=== PATIENT | male | born 1940 | race Caucasian/White ===

== ENCOUNTER 2017-02-11 16:28 | Emergency (ER) ==
[2017-02-11 16:41] VITALS: BP 159/85
[2017-02-11] MEDS ORDERED: XYLOCAINE-MPF 1% 10 ML ONE (16:46)
--- NOTE | 2017-02-11 17:05 | PROVIDER DOCUMENTATION ---
HPI-Rash/Wound/ReCheck - General Source: patient - History of Present Illness-Dermatology Location: reports: other (left thumb) Quality: reports: painful Severity: reports: moderate Onset/Duration: reports: 1/2 hour ago Timing: reports: still present Context/Associated Symptoms: reports: laceration Identifiable cause?: Yes Locality of Occurance: Home Similar Symptoms Previously?: No Recently seen or treated by another doctor?: No <Teodora Fry - Last Filed: 02/11/17 17:01> <Belgica Chen - Last Filed: 02/11/17 17:32> - General Chief Complaint: Laceration[s] Stated Complaint: LACERATION{S} Time Seen by Provider: 02/11/17 16:46 Allergies/Adverse Reactions: Allergies Allergy/AdvReac Type Severity Reaction Status Date / Time No Known Allergies Allergy Verified 02/11/17 16:36 Home Medications: Home Medication List Medication Instructions Recorded Confirmed Last Taken Type Acetaminophen/Diphenhydramine 1 each PO QHS PRN 07/24/12 02/11/17 04/13/14 20: 00 History [Tylenol Pm] 1 Aspirin 81 mg PO QHS 07/24/12 02/11/17 04/13/14 20:00 History 81 Carvedilol 12.5 mg PO BID 07/24/12 02/11/17 04/14/14 09:00 History 12.5 Erythromycin Stearate [Erythrocin] 250 mg PO TID 07/24/12 02/11/17 04/14/14 18: 00 History 250 Insulin Glargine,Hum.rec.anlog 45 units SQ QHS 07/24/12 02/11/17 04/13/14 20:00 History [Lantus] 45 Isosorbide Mononitrate 60 mg PO QHS 07/24/12 02/11/17 04/14/14 09:00 History 60 Losartan/Hydrochlorothiazide 100 mg PO DAILY 07/24/12 02/11/17 04/14/14 09:00 History [Losartan-Hctz 100-12.5 mg Tab] 100 Mineral Oil [Mineral Oil Heavy] 15 ml PO QHS PRN 07/24/12 02/11/17 07/22/12 22: 00 History Sucralfate [Carafate] 1 gm PO 4XDAY 07/24/12 02/11/17 04/14/14 18:00 History 1 Hydrochlorothiazide 12.5 mg PO DAILY 04/14/14 02/11/17 04/14/14 09:00 History 12.5 Nitroglycerin Sl [Nitrostat] 0.4 mg SL PRN PRN 04/14/14 02/11/17 04/14/14 21:00 History 3 tabs total SIMVAstatin [Zocor] 40 mg PO QHS 04/14/14 02/11/17 04/13/14 20:00 History 40 Cephalexin [Keflex] 500 mg PO BID #20 capsule 02/11/17 Unknown Rx Hydrocodone/Acetaminophen [Lortab 1 each PO TID #10 tablet 02/11/17 Unknown Rx 5-325 mg Tablet] - History of Present Illness-Dermatology Nature of Presenting Problem: Pt is a 76 yom that presents to er with cc of finger laceration patient care. pt reports he had just put a new blade on his chainsaw and was cutting a tree about 30 seconds when it kicked back on him lacerating left thumb. Pt had finger wrapped and bleeding controlled on arrival. Last unknown tetanus. (Teodora Fry) Review of Systems - Adult - REVIEW OF SYSTEMS - ADULT Constitutional: denies: chills, fever, fatique Eyes: reports: no symptoms reported Ears, Nose, Mouth & Throat: reports: no symptoms reported Cardiovascular: denies: chest pain, irregular heart rate, orthopnea, syncope Respiratory: reports: no symptoms reported Gastrointestinal: reports: no symptoms reported Genitourinary: reports: no symptoms reported Musculoskeletal: reports: see HPI. denies: joint pain, joint swelling, muscle aches Integumentary: reports: see HPI. 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 - IMMUNIZATION STATUS Childhood Immunizations: See Nurse Assessment Flu Vaccine: See Nurse Assessment - FAMILY HISTORY Family History: reviewed, not pertinent - SOCIAL HISTORY Smoking: denies Substance Use: none/never <Teodora Fry - Last Filed: 02/11/17 17:01> Physical Exam-General - PHYSICAL EXAM-ADULT Initial Vital Signs Reviewed: Yes - CONSTITUTIONAL General Appearance: appears well, alert, no apparent distress - EYES Eyes: PERRL/EOMI, pink conjunctivae - HEAD, EARS, NOSE, MOUTH & THROAT HENMT: normocephalic/atraumatic, moist mucous membranes, normal ENT inspection, TMs normal, pharynx normal - NECK Neck: full range of motion, supple - RESPIRATORY Respiratory: lungs clear, normal breath sounds - CARDIOVASCULAR Cardiovascular: normal peripheral pulses, regular rate, rhythm - GASTROINTESTINAL (ABDOMEN) Abdominal Exam: non tender, soft - MUSCULOSKELETAL Extremity: normal range of motion, normal capillary refill Peripheral Pulses: radial (L): 2+ - SKIN Integumentary: abrasion(s) (multi left anteriot palm), laceration(s) (2 cm jagged laceration left anterior proximal thumb) - PSYCHIATRIC Psych/Mental Status: normal mood/affect, oriented x 3 <Belgica Chen - Last Filed: 02/11/17 17:32> Progress <Teodora Fry - Last Filed: 02/11/17 17:01> <Belgica Chen - Last Filed: 02/11/17 17:32> - PLAN OF CARE/RESULTS Progress/Plan/Lab Results: After unwrapping the gauze from pt left thumb noted obvious laceration bleeding 2cm by 1cm jagged and irregular. Laceration repair is done by LIYA Chen. Orders Category Date Time Status Lidocaine 1% Pf [Xylocaine-Mpf 1%] 10 ml Med 02/11/17 16:46 Discontinued .ROUTE As Directed Vital Signs - 24 hr 02/11/17 16:36 Temperature 98.2 F Pulse Rate 76 Respiratory 18 Rate Blood Pressure 159/85 O2 Sat by Pulse 100 Oximetry (Teodora Fry) Discussed care, diagnosis and need for follow-up, patient verbalized understanding Orders Category Date Time Status Diphtheria/Tetanus Adult Med 02/11/17 17:20 Discontinued 0.5 ml IM .ONCE ONE Lidocaine 1% Pf [Xylocaine-Mpf 1%] 10 ml Med 02/11/17 16:46 Discontinued .ROUTE As Directed Last Vital Signs Temp 98.2 F 02/11/17 16:36 Pulse 76 02/11/17 16:36 Resp 18 02/11/17 16:36 BP 159/85 02/11/17 16:36 Pulse Ox 100 02/11/17 16:36 Allergies No Known Allergies Allergy (Verified 02/11/17 16:36) Vital Signs - 24 hr 02/11/17 16:36 Temperature 98.2 F Pulse Rate 76 Respiratory 18 Rate Blood Pressure 159/85 O2 Sat by Pulse 100 Oximetry (Belgica Chen) Procedures - LACERATION/WOUND REPAIR/FB Left Anterior Proximal Hand Wound Location: Other: proximal thumb Wound's Depth, Shape: superficial Wound Explored/Foreign Body: contaminated moderately Irrigated with Saline?: Yes Prepped with: Betadine Anesthetic: 1%, Lidocaine w/ Epinephrine Wound Debrided: minimal Wound Repaired with: Sutures Suture Size/Type: 4.0 Layer Closure?: Yes Sterile Dressing Applied?: Yes Splint Applied?: Yes <Belgica Chen - Last Filed: 02/11/17 17:32> Departure <Teodora Fry - Last Filed: 02/11/17 17:01> - Departure Time of Disposition Order: 17:20 Certified Medical Emergency: Emergent <Belgica Chen - Last Filed: 02/11/17 17:32> - Departure DIAGNOSIS: Laceration of thumb Qualifiers: Encounter type: initial encounter Laterality: left Qualified Code(s): S61.012A - Laceration without foreign body of left thumb without damage to nail, initial encounter Abrasion of palm of left hand Qualifiers: Encounter type: initial encounter Qualified Code(s): S60.512A - Abrasion of left hand, initial encounter Disposition: HOME 01 Condition: Stable Additional Instructions: ED Follow Up Instructions: You have been treated by a care provider in the Emergency Department. These instructions are being provided to you so you can have an understanding of how to care for yourself upon discharge. Upon discharge from the Emergency Department, you are responsible for making arrangements for follow-up care by a physician of your choice. Take all prescribed medications as directed. Return to the Emergency Department immediately for any new or worsening symptoms. You may call the Physician Referral phone number at [phone] to obtain a list of Physicians who are taking new patients. Prescriptions: Cephalexin [Keflex] 500 mg PO BID #20 capsule Hydrocodone/Acetaminophen [Lortab 5-325 mg Tablet] 1 each PO TID #10 tablet Attestation - Scribe Verification/Attestation Scribe:: Teodora Fry Acting as Scribe for:: Belgica Chen Scribe documention review:: This chart was documented by a scribe and accurately reflects the service the provider performed and the decisions made by the provider. - Physician/ YAMILA Attestation Patient care was provided by Advanced Practice Provider:: Yes Advanced Practice Provider:: Belgica Chen Advanced Practice Provider documentation review:: The Mid-level provider documentation, treatment plan and medical decision making was reviewed by the physician who agrees with all treatment and medical decision making by the MLP. <Teodora Fry - Last Filed: 02/11/17 17:01> - Physician/ YAMILA Attestation Patient care was provided by Advanced Practice Provider:: Yes Advanced Practice Provider:: Belgica Chen Advanced Practice Provider documentation review:: The Mid-level provider documentation, treatment plan and medical decision making was reviewed by the physician who agrees with all treatment and medical decision making by the MLP. <Belgica Chen - Last Filed: 02/11/17 17:32> Physician Attestation
[2017-02-11] MEDS ORDERED: DIPHTHERIA/TETANUS ADULT IM ONE (17:20)
== END 2017-02-11 17:49 | disposition home or self-care (01) ==
LOC: P.ED 16:28
DX: S61.012A Laceration without foreign body of left thumb without damage to nail, initial encounter (principal); S60.512A Abrasion of left hand, initial encounter; W29.3XXA Contact with powered garden and outdoor hand tools and machinery, initial encounter; I10 Essential (primary) hypertension; I25.2 Old myocardial infarction; Z86.79 Personal history of other diseases of the circulatory system; Z95.1 Presence of aortocoronary bypass graft; Z79.899 Other long term (current) drug therapy; Z79.4 Long term (current) use of insulin; Z79.82 Long term (current) use of aspirin; Z23 Encounter for immunization
CPT/HCPCS: 90471; 90714